=== PATIENT | male | born 1965 | race Two or more races ===

== ENCOUNTER 2016-11-25 07:46 | Day surgery (SDC) | payer OTHER ==
[2016-11-25] VITALS (23 sets, daily range): BP systolic 121–158; BP diastolic 5–95
[~2016-11-25] VITALS: Ht 170.2 cm; Wt 67.1 kg
[~2016-11-25 07:46] MED LIST: ceFAZolin 1gm/50ml Premix 50 ML IV ONE; celeBREX 200mg Cap **SURGERY PATIENTS ONLY ORAL ONE; oxyCONTIN 20mg tab ORAL ONE
[2016-11-25] MEDS ORDERED: METFORMIN HCL500 M5 PO (08:28)
[2016-11-25] MEDS ORDERED: ATORVASTATIN CA10 MG ORAL (08:28)
[2016-11-25] MEDS ORDERED: LISINOPRIL5 MG ORAL (08:28)
[2016-11-25] MEDS ORDERED: Ropivacaine 5mg/ml Vial 20ml INJ ONE (09:15)
[2016-11-25] MEDS ORDERED: Bupivacaine 0.25% Inj 30ml INJ ONE (09:15)
[2016-11-25] MEDS ORDERED: EPINEPHrine 1mg/1ml Amp ONE (09:15)
[2016-11-25] MEDS ORDERED: Bupivacaine w/Epi 0.5% 30ml Vial INJ ONE (09:15)
[2016-11-25] MEDS ORDERED: fentaNYL 100 mcg/2 mL IV ONE (10:30)
[2016-11-25] MEDS ORDERED: Propofol 200mg/20ml IV ONE (10:30)
[2016-11-25] MEDS ORDERED: ePHEDrine 50mg/ml Inj ONE (10:30)
[2016-11-25] MEDS ORDERED: Lidocaine 1% MPF 10mg/ml 5ml ONE (10:30)
[2016-11-25] MEDS ORDERED: Zemuron 50mg/5ml Inj IV ONE (10:30)
[2016-11-25] MEDS ORDERED: Metoclopramide 10mg/2ml Inj ONE (10:30)
[2016-11-25] MEDS ORDERED: LR 1000ml ONE (10:30)
--- NOTE | 2016-11-25 11:04 | Anethesia Preoperative Eval ---
Anesthesia Pre-op PMH/ROS General Date of Evaluation: Nov 25, 2016 Time of Evaluation: 10:30 Anesthesiologist: sarah ASA Score: ASA 2 Mallampati Score Class I : Soft palate, uvula, fauces, pillars visible Class II: Soft palate, uvula, fauces visible Class III: Soft palate, base of uvula visible Class IV: Only hard plate visible Mallampati Classification: Class II Surgeon: sandra Diagnosis: shoulder pain Surgical Procedure: right shoulder arthroscopy Anesthesia History: none Family History: no anesthesia problems Allergies: Coded Allergies: No Known Allergies (Unverified , 11/24/16) Medications: see eMAR Past Medical History Cardiovascular: Reports: HTN Pulmonary: Denies: asthma, COPD, AQUILES, other Gastrointestinal/Genitourinary: Denies: GERD, CRI, ESRD, other Neurologic/Psychiatric: Denies: dementia, CVA, depression/anxiety, TIA, other Endocrine: Denies: DM, hypothyroidism, steroids, other HEENT: Denies: cataract (L), cataract (R), glaucoma, ANVIK (L), ANVIK (R), other Hematology/Immune: Denies: anemia, DVT, bleeding disorder, other Musculoskeletal/Integumentary: Denies: OA, RA, DJD, DDD, edema, other PSxH Narrative: epidural injections Anesthesia Pre-op Phys. Exam Physician Exam Last Vital Signs Date Time Temp Pulse Resp B/P (MAP) Pulse Ox O2 Delivery O2 Flow Rate FiO2 11/25/16 08:28 98.1 61 18 127/81 98 Room Air Constitutional: NAD Neurologic: CN 2-12 intact Cardiovascular: RRR Respiratory: CTA Airway Exam Mallampati Classification 2 Mallampati Score: Class II MO: full ROM: full Dentures: no upper, no lower Anesthesia Pre-op A/P Labs wnl Studies Pre-op Studies: EKG - sr Risk Assessment & Plan Assessment: PI patient with shoulder pain Plan: general and ISB block Status Change Before Surgery: No Pre-Antibiotics Drug: ancef Given Within 1 Hr of Incision: Yes Time Given: 10:30 AIDA REICH CRNA Nov 25, 2016 11:04
[2016-11-25] MEDS ORDERED: Neostigmine 1mg/ml 10ml Inj ONE (11:13)
--- NOTE | 2016-11-25 13:02 | Immediate Post-Op Evaluation ---
Immediate Post-Op Evalulation Immediate Post-Op Evalulation Procedure: right shoulder arthroscopy Date of Evaluation: Nov 25, 2016 Time of Evaluation: 11:41 IV Fluids: 600 Blood Pressure Systolic: 129 Blood Pressure Diastolic: 71 Pulse Rate: 65 Respiratory Rate: 14 O2 Sat by Pulse Oximetry: 100 Temperature (Fahrenheit): 98.3 Pain Score (1-10): 0 Nausea: No Vomiting: No Complications none Patient Status: awake, reacts, patent Hydration Status: adequate Drug: ancef Given Within 1 Hr of Incision: Yes Time Given: 10:30 AIDA REICH CRNA Nov 25, 2016 13:02
--- NOTE | 2016-11-25 13:03 | 48 Hour Post Anesthesia Eval ---
Post Anesthesia Evaluation Procedure: right shoulder arthroscopy Date of Evaluation: Nov 25, 2016 Time of Evaluation: 13:03 Blood Pressure Systolic: 135 0: 60 Pulse Rate: 70 Respiratory Rate: 14 O2 Sat by Pulse Oximetry: 100 Airway: patent Nausea: No Vomiting: No Hydration Status: adequate Cardiopulmonary Status: stable Mental Status/LOC: patient returned to baseline Follow-up Care/Observations: surgeon Post-Anesthesia Complications: none Follow-up care needed: N/A AIDA REICH CRNA Nov 25, 2016 13:03
[2016-11-25] MEDS ORDERED: Tylenol #3 tab (300mg/30mg) ORAL PRN (13:45)
[2016-11-25] MEDS ORDERED: Norco 5mg/325mg tab ORAL PRN (13:45)
[2016-11-25] MEDS ORDERED: HYDROmorphone 1mg/ml Carpuject SUBQ PRN (13:45)
[2016-11-25] MEDS ORDERED: D5 1/2NS 1,000 ML IV SCH (13:45)
--- NOTE | 2016-11-25 19:29 | Pre-Procedure Note/Attestation ---
Pre-Procedure Note/Attestation Complete Prior to Procedure Planned Procedure: right Procedure Narrative: shoulder arthroscopy, sad, possible rct repair Indications for Procedure Pre-Operative Diagnosis: right shoulder impingement, possible rct Attestation I attest that I discussed the nature of the procedure; its benefits; risks and complications; and alternatives (and the risks and benefits of such alternatives ), prior to the procedure, with the patient (or the patient's legal promotions representative). I attest that, if there was a reasonable possibility of needing a blood transfusion, the patient (or the patient's legal promotions representative) was given the [facility] standardized written summary, pursuant to the Benjy Jasmina Blood Safety Act ([place] Health and Safety Code # 1645, as amended). I attest that I re-evaluated the patient just prior to the surgery and that there has been no change in the patient's H&P, except as documented below: ROMAN WOLFE Nov 25, 2016 19:29
--- NOTE | 2016-11-25 19:29 | Operative Note - PDOC ---
Operative Note Operative Note Pre-op Diagnosis: right shoulder impingement, possible rct Procedure: right shoulder rc repair, sad Post-op Diagnosis: same as pre-op plus Operative Findings: consistent w/pre-op dx studies Anesthesia: regional, MAC Specimen: none Complications: none Condition: stable Estimated Blood Loss: none Implant(s) used?: No ROMAN WOLFE Nov 25, 2016 19:29
--- NOTE | 2016-11-28 09:45 | Operative Note - Dictated ---
DATE OF OPERATION: 11/25/2016 Preoperative Diagnosis: right shoulder traumatic impingement syndrome. POSTOPERATIVE DIAGNOSES: 1. right shoulder traumatic impingement syndrome. 2. Less than 25% articular-sided partial rotator cuff tear. PROCEDURES: 1. right shoulder diagnostic arthroscopy. 2. right shoulder subacromial decompression, bursectomy, and release of the CA ligament. 3. right shoulder debridement and partial articular-sided rotator cuff tear. SURGEON: Tone Patrick M.D. ANESTHESIA: Interscalene with general. Indication For The Procedure: The patient is a 51-year-old gentleman, who had continued right shoulder pain. He had a clinical evidence of impingement syndrome. He failed conservative treatment. He had a possible diagnostic subacromial cortisone injection and therefore after failing conservative treatment, elected to undergo right shoulder diagnostic arthroscopy, subacromial decompression, bursectomy, and release of CA ligament. Risks, limitations, expectations, and complications of the procedure were discussed in detail. All questions were addressed. Description Of Procedure: An informed consent was obtained. The patient was brought to the operating room and placed under general interscalene anesthetic. The patient was then carefully placed in the beach chair position. right shoulder was prepped and draped in a sterile manner. Time-out was performed. The posterolateral stab incision was then made. Trocar was introduced into the glenohumeral joint. Systematic tour of the shoulder was performed. There is a small articular-sided partial rotator cuff tear. No chondral damage and anterior labrum appeared to be intact. A shaver was then placed into the joint and debridement of the partial articular-sided rotator cuff tear was performed. Camera was then repositioned in the subacromial space. There is some hypertrophic bursal tissue, which was debrided and visualized the undersurface of the acromion. The acromioplasty was started from lateral to medial and completed from posterior to anterior. Once that was done, the bursectomy was completed from the posterior aspect of the shoulder. The instruments were then removed. Portal sites were closed with 3-0 Monocryl sutures. Steri-Strips and a sterile dressing were applied. The patient was awoken and taken to recovery with stable vital signs. ESTIMATED BLOOD LOSS: Minimal. COMPLICATIONS: None. SPECIMENS: None. IMPLANTS: None. Tone Patrick M.D. DR: ABNER JOB#: [id number] CC: KANDICE
== END 2016-11-25 15:15 | disposition home or self-care (01) ==
LOC: SUR 07:46
DX: M75.111 Incomplete rotator cuff tear or rupture of right shoulder, not specified as traumatic (principal); M25.811 Other specified joint disorders, right shoulder; I10 Essential (primary) hypertension; M54.5 Low back pain; E78.00 Pure hypercholesterolemia, unspecified; E11.9 Type 2 diabetes mellitus without complications
CPT/HCPCS: 29822; 29826; 29827; 82962; J0171; J0690; J2405; J2704; J2710; J2765; J2795; J3010; J3490; J7120; 94003; 94150